=== PATIENT | female | born 1970 | race Two or more races ===

== ENCOUNTER 2022-11-10 09:40 | Day surgery (SDC) | payer OTHER ==
[~2022-11-10] VITALS: Ht 157.5 cm; Wt 77.1 kg
[~2022-11-10 09:40] MED LIST: GLIMEPIRIDE1 M1 PO; MICARDIS80 MG PO; SYNTHROID150 MCG PO
[2022-11-10] MEDS ORDERED: NAPR500T14 PO (12:57)
[2022-11-10] MEDS ORDERED: MORGIDOX100 MG PO (12:57)
== END 2022-11-10 18:10 | disposition home or self-care (01) ==
LOC: CIR.AMB 09:40
PROVIDERS: ATTEND Obstetrics & Gynecology
DX: D25.0 Submucous leiomyoma of uterus (principal); N95.0 Postmenopausal bleeding; N84.0 Polyp of corpus uteri; Z20.822 Contact with and (suspected) exposure to COVID-19